=== PATIENT | male | born 1945 | race Caucasian/White ===

== ENCOUNTER 2019-08-28 15:52 | Inpatient (IN) | payer MEDICARE, OTHER ==
[~2019-08-28] VITALS: Ht 180.3 cm; Wt 99.3 kg
--- NOTE | ~2019-08-28 | H ---
[address] [address] HISTORY AND PHYSICAL Name: CLAY MC Room: [address] ADM IN M.R.#: [id number] Admission: 08/28/19 Attend Phys: Lida Retana Discharge: Date of : 41 Report #: [id number] THIS REPORT FOR: //name// CC: Elinor Garcia DO [facility] physician/PCP Aleksandar Conner DATE OF SERVICE: 08/28/2019 PRIMARY CARE DOCTOR: Dr. Garcia in [place], [place]. HISTORY OF PRESENT ILLNESS: A pleasant 74-year-old male reports that he has had about 10 days of shortness of breath and cough, initially started with a strong productive cough, drainage, and irritation of his sinuses. He has been on Mucinex extended release and short-acting trying to control the postnasal drip with concerns from sinus disease that continued to worsen. He presented to [facility] for treatment for his cough and actually was told he had pneumonia. They wish to admit him to take care of it aggressively. He initially continued to decline in the next 3 days. He had some poor reaction, he believes to the doxycycline. It made him physically ill with headache, nausea, and weakness. He was not clearly able to communicate with the staff about his problems, continued to receive another dose of doxycycline, which made him further feel more sick. He continued to actually feel more ill overall and short of breath. Today, a followup CT scan was done of his chest, which has not progressed terribly his pneumonia. Imaging of his head did not show any bleeding, although he had "the worst headache of his life" and they were concerned for this rightly. He had responded to apparently multiple doses of Vicodin for his headache, is now improved, although not 100% resolved. He followed this with some hypertensive problems knowing that he has had a white coat hypertension for years, worsening with care and again he did have blood pressures of 200/100 and has required Cardene drip. ALLERGIES: PENICILLIN. PAST MEDICAL HISTORY: Hypertension, seasonal allergies, sinusitis, migraine headaches, AFib, hyperlipidemia. PAST SURGICAL HISTORY: None. FAMILY HISTORY: Father of heart disease in his 30s. He believes that wound from the war actually was involved with that. Multiple male family members on his father's side also prematurely of coronary artery disease with the family on his mother's side had lived into their late 90s. SOCIAL HISTORY: He is a nonsmoker, nondrinker, [place] [address] HISTORY AND PHYSICAL Name: CLAY MC Room: [address] IN [facility]#: [id number] Admission: 08/28/19 Attend Phys: Lida Retana Discharge: Date of : 41 Report #: [id number] REVIEW OF SYSTEMS: GENERAL: He has had weakness, feeling tired. EYES: No visual change or blurred vision. EARS: No hearing loss or tinnitus. NOSE: He has had congestion. MOUTH: No dysphagia or dysarthria. NECK: No lumps or swelling. HEAD: He has had headache. HEART: He has had some palpitations. LUNGS: He has had some shortness of breath and cough. GASTROINTESTINAL: He has had nausea and vomiting. GENITOURINARY: No urgency or frequency of urination. MUSCULOSKELETAL: No significant aches or pains right now. SKIN: No itching or rash. EXTREMITIES: No lumps or swelling. PSYCHIATRIC: Denies anxiety or depression. ENDOCRINE: No high or low thyroid function or diabetes. PHYSICAL EXAMINATION: GENERAL: A pleasant, 74-year-old male. HEAD: Normocephalic, atraumatic. EYES: Pupils equal, round and reactive to light and accommodation. NOSE: Clear without ulceration. MOUTH: Mucous membranes moist and pink. NECK: Supple, no JVD or carotid bruit. CARDIOVASCULAR: Regular rate and rhythm. S1, S2 heart sounds present. No S3, S4 or murmur. LUNGS: Coarse to auscultation anteriorly with few basilar crackles. ABDOMEN: Soft. Bowel sounds present. No mass or hepatosplenomegaly. EXTREMITIES: No clubbing, cyanosis, edema. SKIN: Warm and dry. BACK: Clear without ulceration. FOOT: Clear without ulceration. PSYCHIATRIC: Appropriate mood and affect. NEUROLOGIC: The patient is alert and oriented. Strength 5/5 in all 4 extremities by hand tutoring assistant and foot flexion. Distal tendon reflexes 2/4 in all 4 extremities, patellar and brachioradialis. Pulses in all 4 extremities 2/4 dorsalis pedis and radial. SKIN: Warm and dry. MEDICATIONS: The patient was transferred with his Tylenol, valsartan, Foristal, Xarelto, Protonix, rizatriptan, Phenergan, Zofran, [place], fentanyl, hydrochlorothiazide, Bactroban, Cardene drip, which was discussed with his treating physician today, flecainide, Flonase, Lipitor, Norvasc, albuterol, trazodone, simvastatin, hydralazine, doxycycline. Again, the patient reports every time he got this dose, he will get more sick, starting on the 08/27/2019, [address] [place] [address] HISTORY AND PHYSICAL Name: CLAY MC Room: [address] IN ..#: [id number] Admission: 08/28/19 Attend Phys: Lida Retana Discharge: Date of : 41 Report #: [id number] 08/28/2019 and apparently was reordered. DATA: The patient does have a CT scan, which does show minimal chest changes, atelectasis. Please see CT scan results for details. He does have EKG showing rate of 53 with PVCs. No [place]. Another EKG showing rate of 62. Again, PVCs, no [place]. Vital signs reviewed with nursing is now down to a systolic blood pressure of 138, pulse of 80, respiratory rate of 24, still short of breath, requiring oxygen at 2 liters. Discussed with nursing findings from his CT of his head as well. CT scan from [facility] dated 08/28/2019 at 10:21 a.m., no intracranial abnormality as well as PA lateral chest showing mild cardiac prominence without deandre heart failure on 08/28/2019 at 10:[address] comparison was from 05/16/[address] of the chest on 08/26/2019 at 9:31 a.m. showed mild pulmonary hyperinflation, nonspecific scattered ground-glass densities throughout both lungs, compatible with pneumonia, bilateral pulmonary scarring, thick amount of old granulomatous disease, upper limits of normal size heart with coronary calcifications, mild aneurysmal dilation of the ascending thoracic aorta up to 5 cm transverse, diffuse thoracic aortic ectasia and atherosclerosis, multiple artifacts completely visualized. ASSESSMENT AND PLAN: Pneumonia, concern for possible aspiration involvement with failure of an outpatient therapy and hospitalization and transfer for continuation of care. The patient was not responsive with his initial team with his antibiotic regimen, initially declining a little bit with his symptoms, hypertensive emergency with headache, somewhat responsive to multiple oral agents including additionally an intravenous Cardene drip titration, migraine headaches, chronic sinusitis, currently worse with an intractable nausea, vomiting, headache, gastroesophageal reflux disease, hypertension, hyperlipidemia, atrial fibrillation, requiring anticoagulation and rate control for stroke risk reduction and for control of his rate, pain control, nausea control, DVT prophylaxis, ongoing therapies with titration of his trazodone, continuation of his antilipid therapy with atorvastatin, hydralazine be changed from p.r.n. to scheduled to try to increase the potency, increasing Norvasc from 5 mg daily to 5 mg twice a day. Continuation of his Rocephin, which was used to replace his doxycycline, which seemed to be reacting very poorly too. Continuation of flecainide, monitoring his heart rate, continuation of his Flonase for his nasal congestion, continuation of his guaifenesin, hydrochlorothiazide continuation as well, Bactroban nasal ointment continuation and Cardene drip. At this time, I am reserving medication for titration based on his rate and rhythm as well as his high blood pressure status. We may need to continue to titrate that and will see how he responds. Initially, he required intravenous opiates due to severe pain, fentanyl, which is again a complex as well as his hydrocodone, Zofran. He will need to have an EKG and followup chest x-ray tomorrow. Discussed with him continuation of his Diovan and Foristal for now as well as his Protonix. Apparently, he had some change in mental status initially with his hypertensive emergency and is improved. So that is why head is bend rightly so. The patient felt [place] [address] HISTORY AND PHYSICAL Name: CLAY MC Room: [address] IN M.R.#: [id number] Admission: 08/28/19 Attend Phys: Lida Retana Discharge: Date of : 41 Report #: [id number] symptomatic from his migraine, it was the worst headache of his life. Certainly, we will have to consider repeating his imaging both of the head and the chest as warranted. For now, we will plan for the chest in the morning. If he has had poor response to therapy, we will have to be cautious about monitoring his cell counts as well as his chemistry and see why he is not tolerating his therapy, certainly not having any further doxycycline as he feels like that was when his symptoms became worse each day. I discussed with the patient, we may need to have him see specialty care with Pulmonology or Cardiology depending on his following testing and examinations serially. Pain control, nausea control, DVT prophylaxis. See orders. By: [id number] Conner, DO /PMT
[2019-08-28 20:15] VITALS: BP 138/80
[2019-08-28] MEDS ORDERED: NORVASC 2.5 MG2.5 M1 PO (20:50)
[2019-08-28] MEDS ORDERED: LIPITOR40 MG PO (20:52)
[2019-08-28] MEDS ORDERED: TAMBOCOR 100 M100 MG PO (20:53)
[2019-08-28] MEDS ORDERED: FLONASE 0.05%50 MCG NARES (20:57)
[2019-08-28] MEDS ORDERED: PROTONIX40 M2 PO (20:58)
[2019-08-28] MEDS ORDERED: XARELTO20 MG PO (21:05)
[2019-08-28] MEDS ORDERED: FLORASTOR250 MG PO (21:07)
[2019-08-28] MEDS ORDERED: VALSARTAN160 MG PO (21:08)
[2019-08-28] MEDS ORDERED: TYLENOL325 MG PO (21:09)
[2019-08-28] MEDS ORDERED: NORCO 5-325 TA1 EAC1 PO (21:11)
[2019-08-28] MEDS ORDERED: RIZATRIPTAN10 MG PO (21:13)
[2019-08-28] MEDS ORDERED: PROMETHAZINE12.5 M1 PO (21:14)
[2019-08-28] MEDS ORDERED: ONDANSETRON HCL4 M1 IV PUSH (21:16)
[2019-08-28] MEDS ORDERED: TRAZODONE HCL50 MG PO (21:17)
[2019-08-29] VITALS: BP 141/89
[2019-08-29 04:00] VITALS: BP 122/78
[2019-08-29 05:02] LABS: HEMATOCRIT 38.7 % (42.0-52.0); HEMOGLOBIN 12.7 gm/dL (14.0-18.0); MCHC 32.9 g/dL (28.0-37.0); MCV 82.1 fL (80.0-100.0); MPV 8.7 fl. (7.2-11.1); RBC 4.71 mil/uL (4.50-6.00); RDW-CV 13.8 % (10.5-14.5); WBC 8.6 thou/uL (4.0-11.0)
[2019-08-29 05:17] LABS: ALBUMIN 2.9 g/dL (3.4-5.0); CALCIUM 9.8 mg/dL (8.5-10.1); CREATININE 1.1 mg/dL (0.6-1.3); TOTAL BILIRUBIN 0.5 mg/dL (<0.1-1.0)
[2019-08-29 05:20] LABS: POTASSIUM 2.9 mmol/L (3.5-5.1)
--- NOTE | 2019-08-29 07:41 | NUR ---
PT ADMITTED TO ROOM 228 DURING DRUG COUNSELOR A TRANSFER FROM [facility]; VSS, A+OX4, UP AD ADALBERTO, DENIED PAIN AT TIME OF ADMIT. CURRENT PAIN MEDICATION REGIMEN HAS BEEN ADEQUATE FOR CONTROLLING HIS PAIN UP TO THIS TIME. ADMISSION AND MEDICATION ORDERS RECEIVED FROM DR. CARDENAS. POTASSIUM LOW THIS AM; SUPPLEMENTAION INITIATED.
[2019-08-29 08:00] VITALS: BP 149/86
[2019-08-29 12:08] VITALS: BP 132/81
[2019-08-29 16:24] VITALS: BP 130/87
--- NOTE | 2019-08-29 17:02 | NUR ---
PT. DECLINED O.T. EVAL STATING HE WAS INDEPENDENT WITH ADL. NURSING STAFF CONCURS PT. IS INDEPENDENT FOR ADLS IN HIS ROOM. WILL DISMISS PT. FROM O.T. SERVICES AT THIS TIME.
--- NOTE | 2019-08-29 18:39 | NUR ---
ASSUMED PT CARE AT 0730. ASSESSMENT COMPLETED CHARTED. ABLE TO MAKE NEEDS KNOWN. C/O SLIGHT HEADACHE TODAY AND GAVE PRN PAIN MEDICATION PER EMAR. UP AD ADALBERTO IN ROOM, RELAXING AND READING A BOOK. CHANGED IN TO NORMAL CLOTHES AND STATED HE FELT WONDERFUL. POTASSIUM REPLACED. WILL CONTINUE TO MONITOR.
[2019-08-29 20:31] VITALS: BP 141/93
[2019-08-30] VITALS: BP 174/99
[2019-08-30 04:00] VITALS: BP 143/100
[2019-08-30 05:15] LABS: CALCIUM 9.8 mg/dL (8.5-10.1); CREATININE 1.3 mg/dL (0.6-1.3); POTASSIUM 3.6 mmol/L (3.5-5.1)
[2019-08-30 06:56] VITALS: BP 152/94
--- NOTE | 2019-08-30 07:49 | NUR ---
PT IS ABLE TO COMMUNICATE HIS NEEDS TO STAFF EFFECTIVELY. CURRENT PAIN MEDICATION REGIMEN HAS BEEN ADEQUATE FOR CONTROLLING HIS PAIN UP TO THIS TIME. BP STILL REMAINS HIGH AT TIMES (KELL. DIASTOLIC); MD IS AWARE. POSSIBLE DISCHARGE TODAY OR TOMORROW.
[2019-08-30 08:00] VITALS: BP 120/98
[2019-08-30 12:00] VITALS: BP 104/73
[2019-08-30] MEDS ORDERED: HYDRALAZINE 2525 MG PO (13:48)
[2019-08-30] MEDS ORDERED: TRIAMTERENE/HCT1 CA1 PO (13:53)
[2019-08-30 14:00] VITALS: BP 104/73
[2019-08-30] MEDS ORDERED: KEFLEX500 M2 PO (14:26)
[2019-08-30] MEDS ORDERED: ZOFRAN4 MG PO (15:04)
--- NOTE | 2019-08-30 16:02 | NUR ---
ASSUMED PT CARE AT 0730. ASSESSMENT COMPLETED CHARTED. ABLE TO MAKE NEEDS KNOWN. UP AD ADALBERTO IN ROOM. RESTING IN BED MOST OF THE DAY. C/O SLIGHT HEADACHE. DISCHARGE APPROVED. DISCHARGE PAPERWORK COMPLETED, SCRIPTS AND MED INFO GIVEN TO PT. IV AND HEART MONITOR REMOVED. NO COMMENTS, QUESTIONS, OR CONCERNS NOTED. WHEELED OUT TO CAR BY STAFF WITH IN TOW AT 1607. ALL BELONGINGS TAKEN WITH HIM.
== END 2019-08-30 16:08 | disposition home or self-care (01) | DRG 178 ==
LOC: M.PRE 15:52 → M.2W 20:08
PROVIDERS: ADMIT Internal Medicine
DX: J69.0 Pneumonitis due to inhalation of food and vomit (principal); I16.1 Hypertensive emergency; E44.0 Moderate protein-calorie malnutrition; I10 Essential (primary) hypertension; G43.909 Migraine, unspecified, not intractable, without status migrainosus; E78.5 Hyperlipidemia, unspecified; I48.91 Unspecified atrial fibrillation; K21.9 Gastro-esophageal reflux disease without esophagitis; E87.6 Hypokalemia; Z68.30 Body mass index [BMI] 30.0-30.9, adult; Z28.21 Immunization not carried out because of patient refusal; Z82.49 Family history of ischemic heart disease and other diseases of the circulatory system; Z88.0 Allergy status to penicillin; Z79.899 Other long term (current) drug therapy

== ENCOUNTER 2019-09-03 09:41 | Emergency (ER) | payer MEDICARE, OTHER ==
[~2019-09-03] VITALS: Ht 182.9 cm; Wt 98.0 kg
[~2019-09-03 09:41] MED LIST: FLONASE 0.05%50 MCG NARES; FLORASTOR250 MG PO; HYDRALAZINE 2525 MG PO; KEFLEX500 M2 PO; LIPITOR40 MG PO; NORCO 5-325 TA1 EAC1 PO; NORVASC 2.5 MG2.5 M1 PO; ONDANSETRON HCL4 M1 IV PUSH; PROMETHAZINE12.5 M1 PO; PROTONIX40 M2 PO; RIZATRIPTAN10 MG PO; TAMBOCOR 100 M100 MG PO; TRAZODONE HCL50 MG PO; TRIAMTERENE/HCT1 CA1 PO; TYLENOL325 MG PO; VALSARTAN160 MG PO; XARELTO20 MG PO; ZOFRAN4 MG PO
[2019-09-03 11:28] LABS: CALCIUM 10.5 mg/dL (8.5-10.1); CREATININE 1.2 mg/dL (0.6-1.3); POTASSIUM 3.5 mmol/L (3.5-5.1)
[2019-09-03 12:11] VITALS: BP 118/88
== END 2019-09-03 12:11 | disposition home or self-care (01) ==
LOC: M.ERS 09:41
PROVIDERS: Emergency Medicine Emergency Medical Services
DX: I10 Essential (primary) hypertension (principal); I48.0 Paroxysmal atrial fibrillation; E78.5 Hyperlipidemia, unspecified; G43.909 Migraine, unspecified, not intractable, without status migrainosus; Z90.49 Acquired absence of other specified parts of digestive tract; Z89.422 Acquired absence of other left toe(s); Z88.0 Allergy status to penicillin; Z88.8 Allergy status to other drugs, medicaments and biological substances